=== PATIENT | female | born 1945 | race Caucasian/White ===

== ENCOUNTER → 2016-11-16 | Outpatient (CLI) | payer OTHER | LOC: CT 15:30 | DX: R91.8 Other nonspecific abnormal finding of lung field (principal) | CPT/HCPCS: 71250 ==

== ENCOUNTER → 2020-10-17 | Outpatient (CLI) | payer OTHER | LOC: HEART CORB 10-03 09:00 | DX: R07.9 Chest pain, unspecified (principal); R06.00 Dyspnea, unspecified; R93.1 Abnormal findings on diagnostic imaging of heart and coronary circulation; I08.8 Other rheumatic multiple valve diseases | CPT/HCPCS: 78452; 93306; A9502; J0280; J2785 ==

== ENCOUNTER → 2022-04-02 | Outpatient (CLI) | payer OTHER | LOC: EXRD 08:15 → US 08:30 | DX: I10 Essential (primary) hypertension (principal) | CPT/HCPCS: 93975 ==